=== PATIENT | female | born 1975 | race Caucasian/White ===

== ENCOUNTER 2019-12-07 11:09 | Emergency (ER) | payer SELFPAY ==
--- NOTE | ~2019-12-07 | CT_ITS ---
EXAMINATION: CT abdomen pelvis w con INDICATION: Right flank and right lower quadrant pain TECHNIQUE: Computed tomographic images of the abdomen and pelvis were obtained after the administrati on of 100 cc of Omnipaque 350 intravenous contrast. The dose-length product (DLP) was 1001.53 mGy-cm. Automated exposure control and iterative reconstruction technique were employed. COMPARISON: None available FINDINGS: Minimal dependent atelectasis is present in the lung bases. The heart size is normal. The l iver, spleen, pancreas, gallbladder, and adrenal glands are normal. The left kidney is unremarkable. There is a 3 mm stone in or near the right ureterovesicular junction. There is moderate right hydrour eteronephrosis. There is perinephric fat stranding surrounding the right kidney. The appendix is norm al. No pathologically enlarged abdominal or pelvic lymph nodes are identified. There is no free intra peritoneal gas or evidence of bowel obstruction. There is moderate lumbar spondylosis at L4-5 and L5- S1. A fat-containing umbilical hernia is noted. IMPRESSION: 1. 3 mm stone at or near the right ureterovesicular junction with moderate right hydroureteronephrosi s. Right perinephric fat stranding may reflect superimposed pyelonephritis. Reviewed, dictated and finalized at location B. IMPRESSION: 1. 3 mm stone at or near the right ureterovesicular junction with moderate righ t hydroureteronephrosis. Right perinephric fat stranding may reflect superimpos ed pyelonephritis.
[2019-12-07 11:11] VITALS: BP 199/90; PULSE 94; RESP 20; TEMP 36.2; O2SAT 100
--- NOTE | 2019-12-07 11:30 | ED.ABDPAIN ---
HPI - Abdominal Pain General Chief Complaint: Urogenital-Female <Kathia Alvarado PA-C - Last Filed: 12/07/19 14:22> Stated Complaint: right flank pain <HINA Lopez Last Filed: 12/07/19 14:22> Time Seen by Provider: 12/07/19 11:19 <HINA Lopez Last Filed: 12/07/19 14:22> Source: patient <HINA Lopez Last Filed: 12/07/19 14:22> Mode of arrival: ambulatory <HINA Lopez Last Filed: 12/07/19 14:22> Limitations: no limitations <HINA Lopez Last Filed: 12/07/19 14:22> History of Present Illness HPI narrative: This is a 44 year old female that presents to the ER for right sided flank pain/abdominal pain since this morning. Report sudden onset sharp, constant right sided abdominal pain. Reports the pain radiates to her right flank. Reports the last couple of days she had noted some pressure in her bladder. Denies fever, vomiting, diarrhea, dysuria or hemturia. <HINA Lopez Last Filed: 12/07/19 14:22> Related Data Home Medications: Home Medications Medication Instructions Recorded Confirmed aspirin [Adult Low Dose Aspirin] 162 mg PO DAILY 12/07/19 calcium carbonate [Calcium 500] 500 mg PO DAILY 12/07/19 multivitamin 1 cap PO DAILY 12/07/19 omega 9-anr-loj-fish oil [Fish Oil] 1 cap PO DAILY 12/07/19 <Kathia Alvarado PA-C - Last Filed: 12/07/19 14:22> Allergies/Adverse Reactions: Allergies Allergy/AdvReac Type Severity Reaction Status Date / Time No Known Allergies Allergy Unknown Verified 08/14/04 15:09 <HINA Lopez Last Filed: 12/07/19 14:22> Review of Systems Review of Systems: Narrative: CONSTITUTIONAL: Denies fever GASTROINTESTINAL: Reports abdominal pain. Denies nausea, vomiting, or diarrhea. GENITOURINARY: Denies dysuria or hematuria. MUSCULOSKELETAL: Reports back pain <Kathia Alvarado PA-C - Last Filed: 12/07/19 14:22> All systems reviewed & are unremarkable except as noted in HPI and below <Kathia Alvarado PA-C - Last Filed: 12/07/19 14:22> PMFSH Surgical History Surgical History: Surgical History (Updated 12/07/19 @ 11:32 by Kathia Alvarado PA-C) History of <Kathia Alvarado PA-C - Last Filed: 12/07/19 14:22> Social History Social History: Social History (Updated 12/07/19 @ 11:32 by Kathia Alvarado PA-C) Smoking status: Never smoker <Kathia Alvarado PA-C - Last Filed: 12/07/19 14:22> Exam Narrative: Exam Narrative: GENERAL: Well-appearing, well-nourished, and in no acute distress. HEAD: Normocephalic, atraumatic. EYES: EOMI. CHEST: Clear to auscultation. No respiratory distress. No wheezes rales or rhonchi HEART: Regular rate and rhythm. No murmur heard. Normal peripheral pulses. ABDOMEN: Soft, nondistended, normal active bowel sounds. Mild tenderness to palpation of the RLQ, without guarding. No CVA tenderness EXTREMITIES: Normal range of motion. No edema. SKIN: Warm, dry, no rash. NEURO: No focal deficits. Alert and oriented x3. PSYCH: Normal mood and affect <Kathia Alvarado PA-C - Last Filed: 12/07/19 14:22> Course Consultations Consultation #1: Spoke with Dr. Gusman about patient and workup who will follow up with a virtual visit on Tuesday to see how patient is doing <Kathia Alvarado PA-C - Last Filed: 12/07/19 14:22> Date: 12/07/19 <Kathia Alvarado PA-C - Last Filed: 12/07/19 14:22> Time: 14:11 <Kathia Alvarado PA-C - Last Filed: 12/07/19 14:22> Vital Signs Vital signs: Vital Signs Temperature 36.2 C L 12/07/19 11:11 Pulse Rate 94 12/07/19 11:11 Respiratory Rate 20 12/07/19 11:11 Blood Pressure 199/90 H 12/07/19 11:11 Pulse Oximetry 100 12/07/19 11:11 Temperature 36.2 C L 12/07/19 11:11 Pulse Rate 78 12/07/19 14:29 Respiratory Rate 16 12/07/19 14:29 Blood Pressure 138/75 12/07/19 14:29 Pulse Oximetry 100 12/07/19 14:29 <HINA Lopez Las
[2019-12-07 11:49] LABS: Basophils Percent Auto 0.6 % (0.2-1.2); Eosinophils Absolute Auto 0.1 K/mm3 (0-0.3); Eosinophils Percent Auto 2.1 % (0-4.4); Hematocrit 42.1 % (37.0-47.0); Hemoglobin 13.1 g/dL (12.0-15.0); Immature Granulocyte Absolute 0.02 K/mm3 (0.00-0.031); Immature Granulocyte Percent A 0.4 % (0-0.5); Lymphocytes Absolute Auto 1.21 K/mm3 (0.9-3.2); Lymphocytes Percent Auto 25.3 % (18.3-44.2); Mean Corpuscular HGB Conc 31.1 g/dl (32-36); Mean Corpuscular Hemoglobin 29.5 pg (26-34); Mean Corpuscular Volume 94.8 fl (80-100); Mean Platelet Volume 8.9 fl (7.4-10.4); Monocytes Absolute Auto 0.3 K/mm3 (0.1-0.6); Monocytes Percent Auto 6.5 % (2.6-8.5); Neutrophils Absolute Auto 3.1 K/mm3 (1.3-6.7); Neutrophils Percent Auto 65.1 % (45.5-73.1); Platelet Count Result 224 k/mm3 (150-375); Red Blood Count 4.44 M/mm3 (4.2-5.4); Red Cell Distribution Width 13.3 % (11.5-14.5); White Blood Count 4.8 K/mm3 (4.5-10.0)
[2019-12-07] MEDS: SODIUM CHLORIDE 0.9% IV 500 ML 999 ML IV CONT (11:49)
[2019-12-07 11:53] VITALS: BP 166/89; PULSE 83; RESP 16; O2SAT 99
[2019-12-07 11:58] VITALS: BP 166/89; PULSE 84; RESP 16; O2SAT 99
[2019-12-07 12:00] LABS: Alanine Aminotransferase 43 U/L (4-35); Albumin Level 4.1 g/dL (3.5-5.1); Alkaline Phosphatase 77 U/L (38-126); Aspartate Amino Transferase 58 U/L (14-36); Bilirubin,Total 0.3 mg/dL (0.2-1.3); Blood Urea Nitrogen 14 mg/dL (7-17); Calcium 8.7 mg/dL (8.4-10.2); Carbon Dioxide 21 mmol/L (22-30); Chloride 105 mmol/L (98-107); Estimated CRCL calculation 94 ml/min; Estimated Glomerular Filt Rate > 60; Glucose 135 mg/dL (65-105); Potassium 3.9 mmol/L (3.4-5.0); Sodium 135 mmol/L (137-145)
[2019-12-07 13:58] LABS: Add Urine Microscopic? YES; Appearance Urine Clear (Clear); Bacteria Urine Trace /hpf; Bilirubin Urine Negative (Negative); Blood Urine 2+ (Negative); Calcium Oxalate Crystals Urine Present /hpf; Color Urine Yellow (Yellow); Glucose Urine UA Negative (Negative); Ketones Urine Trace mg/dL (Negative); Leukocyte Esterase Ur Negative LEU/UL (Negative); Mucus Urine Rare /lpf; Nitrate Urine Negative (Negative); Protein Urine 1+ mg/dL (Negative); Squamous Epithelial Cell Urine Occasional /hpf (Few); Urobilinogen Urine Negative mg/dL (<2.0); WBC Urine 0-3 /hpf
[2019-12-07 14:01] LABS: Specific Grav Ur 1.033 (1.001-1.035)
[2019-12-07 14:29] VITALS: BP 138/75; PULSE 78; RESP 16; O2SAT 100
== END 2019-12-07 14:31 | disposition home or self-care (01) ==
PROVIDERS: Physician Assistant; Emergency Provider Emergency Medicine
DX: N13.2 Hydronephrosis with renal and ureteral calculous obstruction (principal); Z79.82 Long term (current) use of aspirin
CPT/HCPCS: 36415; 74177; 80048; 80076; 81001; 81025; 85025; 99284; J0131; J7040; Q9967

== ENCOUNTER 2020-07-09 14:56 | Emergency (ER) | payer OTHER, SELFPAY ==
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
[2020-07-09 16:12] VITALS: BP 148/90; PULSE 94; RESP 18; TEMP 36.6; O2SAT 97
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
== END 2020-07-09 17:57 | disposition home or self-care (01) ==
PROVIDERS: Emergency Provider Emergency Medicine
DX: S20.211A Contusion of right front wall of thorax, initial encounter (principal); Z79.82 Long term (current) use of aspirin; V49.40XA Driver injured in collision with unspecified motor vehicles in traffic accident, initial encounter
CPT/HCPCS: 71046; 71100; 99283

== ENCOUNTER 2024-10-11 21:47 | Emergency (ER) | payer OTHER, SELFPAY ==
--- OUTSIDE RECORDS SUMMARY | 2024-10-11 21:49 | XMS_ITS | Referral Summary ---
Author Organization [facility] Address [address] [place] [address] Care Team Providers Care Hand Glove Cleaner Name Role Phone Unavailable Primary Care Provider Unavailabl e Source Comments [facility],non-owned Affiliates and Associated Physician Practices is amultiple site organization consisting of ambulatory clinics and hospital sitesin [place], [place], [place] and [place]. This disclosure is being madepursuant to the Care Everywhere program and may not contain all information available regarding this patient. Last updated 18.[facility] Social History Tobacco Use Types Packs/Day Years Used Date Smoking Tobacco: Never Assessed Sex and Gender Information Value Date Recorded Sex Assigned at Not on file Gender Identity Not on file Sexual Orientation Not on file Plan of Treatment Not on file
--- OUTSIDE RECORDS SUMMARY | 2024-10-11 21:49 | XMS_ITS | Clinical Summary ---
Author Organization [facility] Address [address] [place] [address] Care Team Providers Care Insurance Instructor Name Role Phone Unavailable Primary Care Provider Unavailabl e Source Comments [facility],non-owned Affiliates and Associated Physician Practices is amultiple site organization consisting of ambulatory clinics and hospital sitesin [place] and [place]. This disclosure is being madepursuant to the Care Everywhere program and may not contain all information available regarding this patient. Last updated 18.[facility] Social History Tobacco Use Types Packs/Day Years Used Date Smoking Tobacco: Never Assessed Sex and Gender Information Value Date Recorded Sex Assigned at Not on file Gender Identity Not on file Sexual Orientation Not on file Plan of Treatment Health Maintenance Due Date Last Done Comments COLOGUARD (AGES 45-75) - COL ON CA SCREENING 1977 COLON MONITORING 1977 COLONOSCOPY - COLON CA SCREENING 1977 CT COLONOGRAPHY - COLON CA SCREENING 1977 Colorectal Cancer Screening 1977 FIT - COLON CA SCREENING 1977 FLEX SIG - COLON CA SCREENING 1977 LIPID TESTING 1977 MAMMOGRAM 1977 PAP SMEAR 1977 HIV SCREENING 02/25/1992 HEPATITIS C SCREENING 02/20/1995 DTAP/TDAP/TD VACCINES (1 - Tdap) 02/25/1996 HEPATITIS B VACCINE (1 of 3 - 19+ 3-dose series) 02/25/1996 COVID-19 VACCINE ( - 2023-2 5 season) 2024 INFLUENZA VACCINE (#1) 2024 DEPRESSION SCREENING 08/29/2024 ZOSTER VACCINE (1 of 2) 2027 HIB VACCINE Aged Out No longer eligi ble based on patient's age to complete this topic HPV VACCINE Aged Out No longer eligi ble based on patient's age to complete this topic MENINGOCOCCAL (Group B) VACCINE Aged Out No longer eligible based on patient's age to complete this topic MENINGOCOCCAL VACCINE Aged Out No josiane wali eligible based on patient's age to complete this topic PNEUMOCOCCAL VACCINE Aged Out No long er eligible based on patient's age to complete this topic
--- OUTSIDE RECORDS SUMMARY | 2024-10-11 21:49 | XMS_ITS | Encounter Summary ---
Author Organization [facility] Address [address] [place] [id number] Care Team Providers Care Office Automation Clerk Name Role Phone Iman Callaway [facility] Primary Care Provider + Encounter Details Date Type Department Care Team (Late Contact Info) Description 10/28/2023 [employer] Message Enc [facility] [address] [employer], [facility] Provider APPOINTMENT REMINDERS Social History Tobacco Use Types Packs/Day Years Used Date Smoking Tobacco: Every Day Cigarettes Passive Smoke Exposure: Current Smokeless Tobacco: Never Alcohol Use Standard Drinks/Week Comments Yes 0 (1 standard drink = 0.6 oz pur e alcohol) 7-10 PHQ-2 Answer Date Recorded Patient Health Questionnaire-2 Score 1 06/07/2023 Comments No Sex and Gender Information Value Date Recorded Sex Assigned at Not on file Legal Sex Female 8:14 PM CDT Gender Identity Not on file Sexual Orientation Not on file documented as of this encounter Plan of Treatment Upcoming Encounters Date Type Department Care Team (Late Contact Info) Description 10/15/2024 8:20 AM MEDICAL SALES REPRESENTATIVE Office Visit [facility] Family [facility] Medicine [address] [phone] Iman Callaway [address], [address] [place] [address] documented as of this encounter Visit Diagnoses Not on filedocumented in this encounter Care Teams Office Automation Clerk Relationship Specialty Start Date End Date Iman Callaway, [facility]- [address], [address] [place] [address] PCP - General Nurse Practitioner Family 06/28/23 documented as of this encounter
--- OUTSIDE RECORDS SUMMARY | 2024-10-11 21:49 | XMS_ITS | Encounter Summary ---
Author Organization [facility] Address [address] [place] [address] Care Team Providers Care Incident Response Manager Name Role Phone Briana Cummings Primary Care Provider [phone] [facility] Care Provider + Encounter Details Date Type Department Care Team ([facility] Contact Info) Description 11/15/2022 [employer] Message Enc [facility] Family & Internal Medicine [address] [phone] Yue, [facility] Provider Pelvic Ultrasound Social History Tobacco Use Types Packs/Day Years Used Date Smoking Tobacco: Some Days Cigarettes Passive Smoke Exposure: Current Smokeless Tobacco: Never Alcohol Use Standard Drinks/Week Comments Not Currently 0 (1 standard drink = 0.6 oz pur e alcohol) 7-10 PHQ-2 Answer Date Recorded Patient Health Questionnaire-2 Score 0 10/28/2022 Comments No Sex and Gender Information Value Date Recorded Sex Assigned at Not on file Legal Sex Female 8:14 PM CDT Gender Identity Not on file Sexual Orientation Not on file COVID-19 Exposure Response Date Recorded In the last 10 days, have yo u been in contact with someone who was confirmed or suspected to have Coronavirus/COVID-19? No / Unsure 10/28/2022 4:12 PM ELECTROMECHANICAL TECHNOLOGIST documented as of this encounter Plan of Treatment Upcoming Encounters Date Type Department Care Team (Late Contact Info) Description 10/15/2024 8:20 AM ELECTROMECHANICAL TECHNOLOGIST Office Visit [facility] Family & Internal Medicine [address] [phone] Iman Callaway FNP-JEANNETTE [phone], [address] [place] [address] documented as of this encounter Visit Diagnoses Not on filedocumented in this encounter Care Teams Incident Response Manager Relationship Specialty [place] [id number] [place] [address] PCP - General PHYSICIAN AIRCRAFT ENGINE MECHANIC 03/29/22 06/27/23 Iman Callaway FNP- [address], [address] [place] [address] PCP - General Nurse Practitioner Family 06/28/23 documented as of this encounter
--- OUTSIDE RECORDS SUMMARY | 2024-10-11 21:49 | XMS_ITS | Patient Health Summary ---
Author Organization [facility] Address [address] [place] [address] Care Team Providers Care Cover Maker Name Role Phone Unavailable Primary Care Provider Unavailabl e Note from [facility]note 2],non-owned Affiliates and Associated Physician Practices is amultiple site organization consisting of ambulatory clinics and hospital sitesin [place], [place], [place] and [place]. This disclosure is being madepursuant to the Care Everywhere program and may not contain all information available regarding this patient. Last updated 18.[facility] Social History Tobacco Use Types Packs/Day Years Used Date Smoking Tobacco: Never Assessed Sex and Gender Information Value Date Recorded Sex Assigned at Not on file Gender Identity Not on file Sexual Orientation Not on file
--- OUTSIDE RECORDS SUMMARY | 2024-10-11 21:49 | XMS_ITS | Clinical Summary ---
Author Organization [facility] Address [address] [place] [address] Care Team Providers Care Cereal Miller Name Role Phone Nini Chang Primary Care Provider + Allergies No known active allergies Medications fish oil (OMEGA-3 FATTY ACID) 1000 MG Cap capsule Take 1 capsule (1,000 mg total) by mouth daily. Active Multiple Vitamin (MULTI-VITAMIN) tablet Take 1 tablet by mouth daily. Active aspirin 81 MG tablet Take 2 tablets (162 mg total) by mouth daily. Active calcium carb-cholecalcife rol (OSCAL) 250-3.125 MG-MCG tablet Take 1 tablet by mouth daily. Active METOPROLOL-HCTZ 50-25 MG TabIndications:Pr imary hypertension Take 1 tablet by mouth daily. 90 tablet 1 4 Active Active Problems Problem Noted Date Diagnosed Date Primary hypertension 09/29/2022 Hypertriglyceridemia 09/22/2016 Encounters Date Type Department Care Team Description 09/27/2024 Orders Only [facility] Family & Internal Medicine [address] [address] Nini Chang FNP-BC 09/26/2024 Telephone [facility] Family & Internal Medicine [address] [address] Nini Chang FNP-BC Orders from Last 3 Months Immunizations Name Administration Dates Next Due Influenza (Generic) 07/02/2013 Influenza Adult (Generic) 07/03/2013 PFIZER COVID-19 (ORIGINAL FO RMULATION, PURPLE CAP) mRNA, LNP-S, PF, 30 MCG/0.3 ML DOSE 12/05/2020,10/25/2020 Tdap (Generic) 01/27/2010 Family History Medical History Relation Comments Cancer Maternal Grandfather prostate Breast Cancer Sister Relation Status Comments Maternal Grandfather Maternal Grandmother Sister Social History Tobacco Use Types Packs/Day Years Used Date Smoking Tobacco: Every Day Cigarettes Passive Smoke Exposure: Current Smokeless Tobacco: Never Tobacco Cessation:Ready to Q uit: Not Asked; Counseling Given: Not Answered Alcohol Use Standard Drinks/Week Comments Yes 0 (1 standard drink = 0.6 oz pur e alcohol) 7-10 PHQ-2 Answer Date Recorded Patient Health Questionnaire-2 Score 1 06/07/2023 Comments No Sex and Gender Information Value Date Recorded Sex Assigned at Not on file Legal Sex Female 8:14 PM CDT Gender Identity Not on file Sexual Orientation Not on file Last Filed Vital Signs Vital Sign Reading Time Taken Comments Blood Pressure 156/106 11/30/2023 9:19 AM CDT Pulse 87 11/30/2023 9:19 AM CDT Temperature 37.2 C (98.9 F) 07/01/2023 4:30 PM CDT Respiratory Rate 16 07/01/2023 4:30 PM CDT Oxygen Saturation 97% 07/01/2023 4:30 PM CDT Inhaled Oxygen Concentration - - Weight 86.6 kg (191 lb) 11/30/2023 9:19 AM CDT Height 175.3 cm (5' 9 ) 11/30/2023 9:19 AM CDT Body Mass Index 28.21 11/30/2023 9:19 AM CDT Plan of Treatment Upcoming Encounters Date Type Department Care Team (Late st Contact Info) Description 10/15/2024 8:20 AM REVENUE TAX SPECIALIST Office Visit [facility] Family & Internal Medicine - [place] [address] [place] [address] Nini Chang, [facility]- [id number] [place] [address], [address] [place] [address] Health Maintenance Due Date Last Done Comments Colorectal Cancer Screening Colonoscopy (10 Years) 1977 Meningococcal Vaccine (1 - Risk 2-dose series) 1979 Pneumococcal Vaccine: Pediatrics (0 to 5 Years) and At-Risk Patients (6 to 64 Years) (1 of 2 - PCV) 1983 Meningococcal B Vaccine (1 o f 5 - Increased Risk) 1987 Hepatitis C 1995 Hepatitis B Vaccines (1 of 3 - 19+ 3-dose series) 02/25/1996 DTaP, Tdap and Td Vaccines ( 2 - Td or Tdap) 01/28/2020 01/27/2010 COVID-19 Vaccine (3 - 2023-2 5 season) 2024 12/05/2020, 10/25/2020 Influenza Adult (#1) 2024 07/03/2013, 07/02/2013 Annual Physical 07/01/2024 07/01/2023, 03/29/2022 PHQ-2 (Physician [place]) 08/29/2024 06/07/2023 Mammogram Screening 11/06/2025 11/07/2023, 10/14/2023, 06/09/2022 Cervical Cancer Screening Pa p Smear (Age 30 to 64) Every 3 Years 07/01/2026 07/01/2023, 03/29/2022 Cervical Cancer Screening Pa p with HPV Testing (Age 30 to 64) Every 5 Years 07/01/2028 07/01/2023, 03/29/2022 Cervical Cancer Screening wi th HPV 07/01/2028 RSV Immunizations Under 20 Months Aged Out No longer eligible b ased on patient's age to complete this topic Procedures Procedure Name Priority Date/Time Associated Diagnosis Comments MG DIAG W RC LT DIGI JC 11/07/2023 9:15 AM CDT Abnormal mammogram of left breast HUMAN PAPILLOMAVIRUS, HIGH-RISK TYPES Routine 07/01/2023 12:00 PM CDT CYTOPATH CERV/VAG THIN LAYER Routine 07/01/2023 12:00 AM CDT from Last 3 Months or Most Recently Relevant to Health Maintenance Results * MG DIAG W RC LT DIGI (11/07/2023 9:15 AM CDT) Anatomical Region Laterality Modality Breast Left Mammography, Rad iographic Imaging 11/07/2023 9:10 AM CDT Narrative 11/07/2023 9:11 AM CDT EXAMINATION: Digital left diagnostic mammogram with 3-D tomography EXAM DATE/TIME: 11/07/2023 8:46 AM REASON FOR EXAM: abnormal mammogram COMPARISON: 06/09/2022. 10/14/2023. TECHNIQUE: Digital diagnostic mammography of the left breast was performed in addition to 3-D Tomosynthesis technique. This study was read with the assistance of a computer-aided detection system. TISSUE DENSITY: The breast tissue is heterogeneously dense, which may obscure small masses. Findings: Previously identified asymmetry in the left breast is due to parenchymal overlap. No dominant mass. No malignant microcalcifications. ===== IMPRESSION: ===== 1. No mammographic evidence of malignancy. Assessment: ACR BI-RADS 2 - BENIGN FINDING(S) Recommendation: 1:Routine Screening Bilateral Comments: Ordered By: NINI CHANG Interpreted By: Maurice Figueroa, 11/07/2023 9:10 AM Nini Chang LICENSED PSYCHOLOGIST DIRECTOR-BC MAMMO Final Re sult * HUMAN PAPILLOMAVIRUS, HIGH-RISK TYPES (07/01/2023 12:00 PM CDT) SPEC DESCRIPTION CERVIX 07/05/20 8:28 AM [facility] HPV DNA HIGH RISK NEGATIVE NEGATIVE 07/07/2023 2:51 PM REVENUE TAX SPECIALIST [facility] Comment:SEE CYTOLOGY REPORT 07/01/2023 12:0 0 PM CDT Nini Chang LICENSED PSYCHOLOGIST DIRECTOR-BC PATHOLOGY/CYTOLOGY ORDER NOEMY Final Result [facility] [address] [employer] [place], [place] [address] [phone] * Cytopath Cerv/Vag Thin Layer (07/01/2023 12:00 AM CDT) THIN PREP PAP [facility] [address] [place] [address] Department of Pathology Pathology Report CERVICAL/VAGINAL PAP SMEAR REPORT Name: CAITLIN QUINONES Age: 6 1975 (Age: 48) Location: [facility] Sex: F Collected Date: 07/01/2023 Hospital #: [id number] Date Received: 07/05/2023 Date Reported: 07/08/2023 Provider: NINI CHANG LICENSED PSYCHOLOGIST DIRECTOR- INTERPRETATION CERVICAL/ENDOCERVI DEVON: SATISFACTORY FOR EVALUATION. ENDOCERVICAL/TRANS FORMATION ZONE COMPONENT ABSENT. NEGATIVE FOR INTRAEPITHELIAL LESION OR MALIGNANCY. SHIFT IN BACTERIAL EVETTE SUGGESTIVE OF BACTERIAL VAGINOSIS. NEGATIVE FOR HIGH RISK HPV. The FDA approved Aptima HPV assay is an in vitro nucleic acid amplification test for the qualitative detection of E6/E7 viral messenger RNA (mRNA) from 14 high-risk types of human papillomavirus (HPV) in cervical specimens. The high-risk HPV types detected by the assay include: 16,18,31,33,35,39, 45,51,52,56,58,59, 66, and 68. Electronically Signed Out By PALOMO Gandhi (ASCP) CLINICAL HISTORY Z01.419 SCREENING PAP ThinPrep Pap Test with HR HPV testing in patient > 30 years requested. Date of Last Menstrual Period: July Menstrual Status: Irregular Contraceptive History: IUD SPECIMEN SUBMITTED CERVICAL/ENDOCERVI DEVON Specimen Received:1 Thin Prep Vial, Image Assisted Pap (SMD) Please note: The Pap smear is not a diagnostic test. It is a screening test. Negative results on combined screening (Pap test and HPV-DNA) have a high negative predictive value (99.1-100 percent) for cervical cancer. The pap test is not effective in detecting cervical adenocarcinoma. [facility] () [facility] 07/01/2023 07/05/2023 7:1 5 AM REVENUE TAX SPECIALIST Comment:CERVICAL/ENDOCERVICA L Nini Chang LICENSED PSYCHOLOGIST DIRECTOR-BC PATHOLOGY/CYTOLOGY ORDER NOEMY Final Result [facility] [address] [place] [address], [place] [phone] from Last 3 Months or Most Recently Relevant to [place] [address] Care Teams Cereal Miller Relationship Specialty Start Date End Date Nini Chang, LICENSED PSYCHOLOGIST DIRECTOR-BC [address], [address] [place] [address] PCP - General Nurse Practitioner Family 06/28/23
[2024-10-11 22:01] VITALS: BP 137/81; PULSE 102; RESP 17; TEMP 36.9; O2SAT 95
--- NOTE | 2024-10-12 | PC.NURSE ---
Pt was visualized multiple times ambulating in and out of ER exit with steady gait.
--- NOTE | 2024-10-12 00:48 | PC.NURSE ---
Patient called to be placed in a room at 0049. No answer.
--- OUTSIDE RECORDS SUMMARY | 2024-10-12 01:18 | XMS_ITS | Clinical Summary ---
Author Organization [facility] Address [address] [place] [address] Care Team Providers Care Stockbroker Name Role Phone Nini Chang Primary Care [...] Department Care Team Description 09/27/2024 Orders Only [facility] Family & Internal Medicine [address] [address] Nini Chang FNP-BC 09/26/2024 Telephone [facility] Family & Internal Medicine [address] [address] Nini Chang FNP-BC Orders from [...] st Contact Info) Description 10/15/2024 8:20 AM LENS MOLDER Office Visit [facility] Family & Internal Medicine - [place] [address] [place] [address] Nini Chang, [facility]- [id number] [place] [address], [address] [place] [address] Health Maintenance Due Date Last [...] Annual Physical 07/01/2024 07/01/2023, 03/29/2022 PHQ-2 (Physician [place]) 08/29/2024 06/07/2023 Mammogram Screening 11/06/2025 11/07/2023, 10/14/2023, [...] Maurice Figueroa, 11/07/2023 9:10 AM Nini Chang BRONZE CHASER-BC MAMMO Final Re sult * HUMAN PAPILLOMAVIRUS, HIGH-RISK TYPES (07/01/2023 12:00 PM CDT) SPEC DESCRIPTION CERVIX 07/05/20 8:28 AM [facility] HPV DNA HIGH RISK NEGATIVE NEGATIVE 07/07/2023 2:51 PM LENS MOLDER [facility] Comment:SEE CYTOLOGY REPORT 07/01/2023 12:0 0 PM CDT Nini Chang BRONZE CHASER-BC PATHOLOGY/CYTOLOGY ORDER NOEMY Final Result [facility] [address] [place], [place] [address] [phone] * Cytopath Cerv/Vag Thin Layer (07/01/2023 12:00 AM CDT) THIN PREP PAP [facility] [address] [place] [address] Department of Pathology Pathology Report CERVICAL/VAGINAL PAP SMEAR REPORT Name: CAITLIN QUINONES Age: 6 1975 (Age: 48) Location: [facility] Sex: F Collected Date: 07/01/2023 Hospital #: [id number] Date Received: 07/05/2023 Date Reported: 07/08/2023 Provider: NINI CHANG BRONZE CHASER- INTERPRETATION CERVICAL/ENDOCERVI DEVON: SATISFACTORY FOR EVALUATION. ENDOCERVICAL/TRANS [...] is not effective in detecting cervical adenocarcinoma. [facility] () [facility] 07/01/2023 07/05/2023 7:1 5 AM LENS MOLDER Comment:CERVICAL/ENDOCERVICA L Nini Chang BRONZE CHASER-BC PATHOLOGY/CYTOLOGY ORDER NOEMY Final Result [facility] [address] [place] [address], [place] [phone] from Last 3 Months or Most Recently Relevant to Health Maintenance Insurance Care Teams Stockbroker Relationship Specialty Start Date End Date Nini Chang, BRONZE CHASER-BC [address], [address] [place] [address] PCP - General Nurse Practitioner Family 06/28/23
--- OUTSIDE RECORDS SUMMARY | 2024-10-12 01:18 | XMS_ITS | Encounter Summary ---
Author Organization [facility] Address [address] [place] [address] Care Team Providers Care Veterinarian Laboratory Animal Care Name Role Phone Briana Cummings Primary Care Provider [phone] [facility] Primary Care Provider + Encounter Details Date Type Department Care Team ([facility] Contact Info) Description 11/15/2022 [employer] Message Enc [facility] Family & Internal Medicine [address] [address] Yue, [facility] Provider Pelvic Ultrasound Social History Tobacco Use [...] Coronavirus/COVID-19? No / Unsure 10/28/2022 4:12 PM TREE TRIMMING LINE TECHNICIAN documented as of this encounter Plan of Treatment Upcoming Encounters Date Type Department Care Team (Late Contact Info) Description 10/15/2024 8:20 AM TREE TRIMMING LINE TECHNICIAN Office Visit [facility] Family & Internal Medicine [address] [address] Iman Callaway FNP-JEANNETTE [address], [address] [place] [address] documented as of this encounter Visit Diagnoses Not on filedocumented in this encounter Care Teams Veterinarian Laboratory Animal Care Relationship Specialty [place] [address] [place] [address] PCP - General PHYSICIAN LEMON PICKER 03/29/22 06/27/23 Iman Callaway FNP- [address], [address] [place] [address] PCP - General Nurse Practitioner Family 06/28/23 documented as of this encounter
--- OUTSIDE RECORDS SUMMARY | 2024-10-12 01:18 | XMS_ITS | Encounter Summary ---
Author Organization [facility] Address [address] [place] [address] Care Team Providers Care Motel Keeper Name Role Phone Iman Callaway [facility] Primary Care Provider + Encounter Details Date Type Department Care Team (Late Contact Info) Description 10/28/[address] [employer] [address] [facility] [address] [employer], [facility] Provider APPOINTMENT REMINDERS Social History Tobacco [...] (Late Contact Info) Description 10/15/2024 8:20 AM BALANCE WHEEL ARM BURNISHER Office Visit [facility] Family & Internal Medicine [address] [address] Iman Callaway [address], [address] [place] [address] documented as of this encounter Visit Diagnoses Not on filedocumented in this encounter Care Teams Motel Keeper Relationship Specialty Start Date End Date Iman Callaway, [facility]- [address], [address] [place] [address] PCP - General Nurse Practitioner Family 06/28/23 documented as of this encounter
--- OUTSIDE RECORDS SUMMARY | 2024-10-12 01:18 | XMS_ITS | Referral Summary ---
Author Organization [facility] Address [address] [place] [address] Care Team Providers Care Silversmith Apprentice Name Role Phone Unavailable Primary Care Provider Unavailabl e Source Comments [facility],non-owned Affiliates and Associated Physician Practices is amultiple site organization consisting of ambulatory clinics and hospital sitesin [place], [place], [place] and [place]. This disclosure is being madepursuant to the Care Everywhere program and may not contain all information available regarding this patient. Last updated 18.[facility] Social History Tobacco Use Types Packs/Day Years Used Date Smoking Tobacco: Never Assessed Sex and Gender Information Value Date Recorded Sex Assigned at Not on file Gender Identity Not on file Sexual Orientation Not on file Plan of Treatment Not on file
--- OUTSIDE RECORDS SUMMARY | 2024-10-12 01:18 | XMS_ITS | Clinical Summary ---
Author Organization [facility] Address [address] [place] [address] Care Team Providers Care Automotive Electrical Helper Name Role Phone Unavailable Primary Care Provider Unavailabl e Source Comments [facility] [employer],non-owned Affiliates and Associated Physician Practices is amultiple site organization consisting of ambulatory clinics and hospital sitesin [place], [place], [place] and [place]. This disclosure is being madepursuant to the Care Everywhere program and may not contain all information available regarding this patient. Last updated 18.[facility] [employer] Social History Tobacco Use Types Packs/Day Years [...]
--- OUTSIDE RECORDS SUMMARY | 2024-10-12 01:18 | XMS_ITS | Patient Health Summary ---
Author Organization [facility] Address [address] [place] [address] Care Team Providers Care Artist'S Manager Name Role Phone Unavailable Primary Care Provider Unavailabl e Note from [facility],non-owned Affiliates and Associated Physician Practices is amultiple site organization consisting of ambulatory clinics and hospital sitesin [place], [place], [place] and [place]. This disclosure is being madepursuant to the Care Everywhere program and may not contain all information available regarding this patient. Last updated 18.[facility] Social History Tobacco Use Types Packs/Day Years Used Date Smoking Tobacco: Never Assessed Sex and Gender Information Value Date Recorded Sex Assigned at Not on file Gender Identity Not on file Sexual Orientation Not on file
--- NOTE | 2024-10-12 01:25 | PC.NURSE ---
Pt was seen multiple times ambulating with a steady gait in and out of the ED waiting room.
== END 2024-10-12 00:50 | disposition left against medical advice (07) ==
LOC: ANHED 10-12 01:16
DX: S05.91XA Unspecified injury of right eye and orbit, initial encounter (principal)
CPT/HCPCS: 99199